=== PATIENT | female | born 1985 | race Caucasian/White ===

== ENCOUNTER 2017-11-15 01:37 | Inpatient (IN) | payer OTHER ==
[~2017-11-15] VITALS: Ht 165.1 cm; Wt 80.9 kg
[2017-11-15] MEDS ORDERED: OXYTOCIN 30U/ 0.9% NaCL 500ML 500 ML IV ONE (01:53)
[2017-11-15] MEDS ORDERED: FENTANYL/BUPIV./NS/PF 250 ML EPIDCONT SCH ×2 (01:53→02:40)
[2017-11-15] MEDS ORDERED: SODIUM CITRATE/CITRIC ACID 30 ML UDC PO PRN (02:00)
[2017-11-15] MEDS ORDERED: ALUMINUM/MAG/SIMETHICONE 30 ML UDC PO PRN (02:00)
[2017-11-15] MEDS ORDERED: FENTANYL PF 100 MCG/2ML IVPush PRN (02:00)
[2017-11-15] MEDS ORDERED: FENTANYL PF 100 MCG/2ML IV PRN (02:00)
[2017-11-15] MEDS ORDERED: TERBUTALINE 1 MG/ML, 1ML IVPush PRN ×2 (02:00)
[2017-11-15] MEDS ORDERED: CALCIUM CARBONATE 500 MG TAB.CHEW PO PRN (02:00)
[2017-11-15] MEDS ORDERED: TERBUTALINE 1 MG/ML, 1ML SQ PRN (02:00)
[2017-11-15] MEDS ORDERED: METOCLOPRAMIDE 5 MG/ML, 2ML IVPush PRN (02:00)
[2017-11-15] MEDS ORDERED: ONDANSETRON 2MG/ML, 2ML IVPush PRN (02:00)
[2017-11-15 02:20] LABS: BASOPHILS # (AUTO) 0.04 x10^3/uL (0-0.1); BASOPHILS % (AUTO) 0 % (0-1); EOSINOPHILS # (AUTO) 0.02 x10^3/uL (0-0.4); EOSINOPHILS % (AUTO) 0 % (1-7); LYMPHOCYTES % (AUTO) 16 % (22-44); MD NO; MEAN CORPUSCULAR HEMOGLOBIN 31.4 pg (27.0-34.8); MEAN CORPUSCULAR HGB CONC 34.2 g/dL (32.4-35.8); MEAN PLATELET VOLUME 9.9 fL (7.4-10.4); MONOCYTES # (AUTO) 0.83 x10^3/uL (0.2-0.8); MONOCYTES % (AUTO) 7 % (2-9); NEUTROPHILS # (AUTO) 8.87 x10^3/uL (1.8-6.8); NEUTROPHILS % (AUTO) 77 % (42-75); PLATELET COUNT 176 x10^3/uL (130-400); RED BLOOD COUNT 4.21 x10^6/uL (3.82-5.3); RED CELL DISTRIBUTION WIDTH 14.2 % (9.6-15.2)
[2017-11-15] MEDS ORDERED: LACTATED RINGERS 1,000 ML IV SCH ×2 (02:25→02:40)
[2017-11-15] MEDS ORDERED: PLEASE ENTER ALLERGIES MC SCH (02:30)
[2017-11-15] MEDS ORDERED: LACTATED RINGERS 1,000 ML IVBOLUS PRN ×2 (02:30→03:00)
[2017-11-15] MEDS ORDERED: BUPIVACAINE 0.25% ONE (02:59)
[2017-11-15] MEDS ORDERED: EPHEDRINE 50 MG/ML, 1ML IVPush PRN (03:00)
[2017-11-15] MEDS ORDERED: NALOXONE 0.4 MG/ML, 1ML IVPush PRN (03:00)
[2017-11-15] MEDS ORDERED: OXYTOCIN 30U/ 0.9% NaCL 500ML 500 ML ONE ×2 (05:59→19:09)
[2017-11-15] MEDS: D5%-LACTATED RINGERS 1,000 ML IV SCH ×3 (06:30→18:25)
[2017-11-15] MEDS ORDERED: OXYTOCIN 30U/ 0.9% NaCL 500ML 500 ML IV PRN (08:59)
[2017-11-15] MEDS ORDERED: LIDOCAINE/PF 1%, 30ML ONE (10:57)
[2017-11-15] MEDS ORDERED: MISOPROSTOL 200 MCG TABLET ONE (10:57)
[2017-11-15] MEDS ORDERED: ACETAMINOPHEN 325 MG TABLET ONE ×2 (12:57→16:15)
[2017-11-15] MEDS ORDERED: ACETAMINOPHEN 325 MG TABLET PO PRN (13:00)
[2017-11-15] MEDS: LACTATED RINGERS 1,000 ML IV SCH ×3 (13:09→19:37)
[2017-11-15] MEDS: PLEASE ENTER HEIGHT AND WEIGHT MC SCH ×2 (13:30→21:30)
[2017-11-15] MEDS ORDERED: ACETAMINOPHEN 325 MG TABLET PO STA (16:12)
[2017-11-15] MEDS ORDERED: GENTAMICIN PER PHARMACY MC PRN (17:30)
[2017-11-15] MEDS: AMPICILLIN 2 GM in SODIUM CHLORIDE 0.9% 100 ML IV SCH ×2 (17:31→23:48)
[2017-11-15] MEDS ORDERED: GENTAMICIN 280 MG in SODIUM CHLORIDE 0.9% 100 ML IV ONE (18:00)
[2017-11-15] MEDS ORDERED: PHARMACOKINETIC MONITORING MC PRN (18:00)
[2017-11-15] MEDS ORDERED: PHARMACOKINETIC CONSULTATION MC ONE (18:00)
[2017-11-15 18:17] LABS: CREATININE 0.68 mg/dL (0.55-1.02)
[2017-11-15] MEDS ORDERED: METHYLERGONOVINE 0.2 MG/ML IM ONE (18:35)
[2017-11-15] MEDS ORDERED: IBUPROFEN 600 MG TABLET ONE (19:10)
[2017-11-15] MEDS ORDERED: METHYLERGONOVINE 0.2 MG/ML IM PRN (19:30)
[2017-11-15] MEDS ORDERED: ONDANSETRON 2MG/ML, 2ML IV PRN (19:30)
[2017-11-15] MEDS ORDERED: OXYcodone/APAP 5/325MG TABLET PO PRN ×2 (19:30)
[2017-11-15] MEDS ORDERED: DOCUSATE 100 MG CAPSULE PO PRN (19:30)
[2017-11-15] MEDS ORDERED: CARBOPROST TROMETHAMINE 250 MCG/ML, 1ML IM PRN (19:30)
[2017-11-15] MEDS ORDERED: MISOPROSTOL 200 MCG TABLET PR PRN (19:30)
[2017-11-15] MEDS ORDERED: METOCLOPRAMIDE 5 MG/ML, 2ML IV PRN (19:30)
[2017-11-15] MEDS: IBUPROFEN 800 MG TABLET PO PRN (19:37)
[2017-11-15] MEDS: OXYTOCIN 30U/ 0.9% NaCL 500ML 500 ML IV SCH (19:37)
[2017-11-15 21:15] VITALS: BP 124/72
[2017-11-16 00:36] VITALS: BP 91/52
[2017-11-16] MEDS: D5%-LACTATED RINGERS 1,000 ML IV SCH ×2 (02:25→10:25)
[2017-11-16] MEDS: LACTATED RINGERS 1,000 ML IV SCH ×2 (02:25→10:25)
[2017-11-16 03:18] LABS: MEAN CORPUSCULAR HEMOGLOBIN 30.7 pg (27.0-34.8); MEAN CORPUSCULAR HGB CONC 33.5 g/dL (32.4-35.8); MEAN CORPUSCULAR VOLUME 91.7 fL (80-100); MEAN PLATELET VOLUME 9.6 fL (7.4-10.4); PLATELET COUNT 155 x10^3/uL (130-400); RED BLOOD COUNT 3.57 x10^6/uL (3.82-5.3); RED CELL DISTRIBUTION WIDTH 13.9 % (9.6-15.2)
[2017-11-16 03:37] LABS: BASOPHILS # (AUTO) 0.04 x10^3/uL (0-0.1); BASOPHILS % (AUTO) 0 % (0-1); EOSINOPHILS # (AUTO) 0.03 x10^3/uL (0-0.4); EOSINOPHILS % (AUTO) 0 % (1-7); LYMPHOCYTES # (AUTO) 1.65 x10^3/uL (1-3.4); LYMPHOCYTES % (AUTO) 10 % (22-44); MD SCAN; MONOCYTES # (AUTO) 0.59 x10^3/uL (0.2-0.8); MONOCYTES % (AUTO) 4 % (2-9); NEUTROPHILS # (AUTO) 14.55 x10^3/uL (1.8-6.8); NEUTROPHILS % (AUTO) 86 % (42-75)
[2017-11-16] MEDS: IBUPROFEN 800 MG TABLET PO PRN ×2 (04:00→11:09)
[2017-11-16] MEDS: OXYTOCIN 30U/ 0.9% NaCL 500ML 500 ML IV SCH ×2 (05:26→15:26)
[2017-11-16] MEDS: PLEASE ENTER HEIGHT AND WEIGHT MC SCH (05:30)
[2017-11-16] MEDS: AMPICILLIN 2 GM in SODIUM CHLORIDE 0.9% 100 ML IV SCH ×2 (05:44→11:09)
[2017-11-16] MEDS ORDERED: DIPH,PERTUSS(ACELL),TET VAC/PF NC IM-VACC ONE ×2 (05:57→06:00)
[2017-11-16 07:15] VITALS: BP 101/66
[2017-11-16] MEDS ORDERED: PRENATAL VIT/IRON/FA 1 EACH TABLET PO SCH (09:00)
[2017-11-16 11:30] VITALS: BP 102/68
[2017-11-16] MEDS ORDERED: GENTAMICIN 330 MG in SODIUM CHLORIDE 0.9% 100 ML IV SCH (17:00)
== END 2017-11-16 18:27 | disposition home or self-care (01) | DRG 775 ==
LOC: LDOP 01:37 → LDIP 01:55 → 2NW 21:16
PROVIDERS: ADMIT Obstetrics & Gynecology; ATTEND Obstetrics & Gynecology
PROC: 10907ZC Drainage of Amniotic Fluid, Therapeutic from Products of Conception, Via Natural or Artificial Opening (ICD-10-PCS; principal; 2017-11-15)
PROC: 10E0XZZ Delivery of Products of Conception, External Approach (ICD-10-PCS; 2017-11-15)
PROC: 0KQM0ZZ Repair Perineum Muscle, Open Approach (ICD-10-PCS; 2017-11-15)
PROC: 3E0R3BZ Introduction of Anesthetic Agent into Spinal Canal, Percutaneous Approach (ICD-10-PCS; 2017-11-15)
PROC: 00HU33Z Insertion of Infusion Device into Spinal Canal, Percutaneous Approach (ICD-10-PCS; 2017-11-15)
DX: O70.1 Second degree perineal laceration during delivery (principal); Z37.0 Single live birth; Z3A.39 39 weeks gestation of pregnancy; O69.81X0 Labor and delivery complicated by cord around neck, without compression, not applicable or unspecified
CPT/HCPCS: 36415; J7121; 80170; 82565; 82803; 85025; 86850; 86900; 90715; G0378; J0290; J3490; J1580; J2590; J3010; J7120